=== PATIENT | female | born 1990 | race Caucasian/White ===

== ENCOUNTER 2021-12-20 21:45 | Inpatient (IN) | payer MEDICAID ==
[2021-12-20] MEDS ORDERED: Sodium Chloride 0.9% 10 ML Syringe FLUSH PRN (21:48)
[2021-12-20] MEDS ORDERED: Naloxone 0.4 MG/ML SDV IVPUSH STA (21:49)
[2021-12-20 22:12] LABS: ESTIMATED GFR 101 mL/min (>60)
[2021-12-21] MEDS ORDERED: Ondansetron 4 MG/2 ML SDV IV PRN (01:57)
[2021-12-21] MEDS ORDERED: Sodium Chloride 0.9% 10 ML Syringe FLUSH PRN (01:57)
[2021-12-21] MEDS: Sodium Chloride 0.9% 1,000 ML IV SCH ×2 (02:27→10:35)
== END 2021-12-21 17:58 | disposition home or self-care (01) | DRG 918 ==
LOC: JP.ED 21:45 → JP.ICU 12-21 00:25
PROVIDERS: ADMIT Hospitalist; ATTEND Hospitalist
DX: T43.011A Poisoning by tricyclic antidepressants, accidental (unintentional), initial encounter (principal); T40.601A Poisoning by unspecified narcotics, accidental (unintentional), initial encounter; T40.711A Poisoning by cannabis, accidental (unintentional), initial encounter; F12.90 Cannabis use, unspecified, uncomplicated; R40.2421 Glasgow coma scale score 9-12, in the field [EMT or ambulance]; M06.9 Rheumatoid arthritis, unspecified; F32.A Depression, unspecified; K59.09 Other constipation; Z20.822 Contact with and (suspected) exposure to COVID-19; Z91.018 Allergy to other foods; Z86.19 Personal history of other infectious and parasitic diseases
CPT/HCPCS: 36415; 36600; 51702; 70450; 80048; 80053; 80143; 80179; 80305-QW; 80307; 81001; 82803; 85025; 93005; 96374; 99223; 99238; 99291-25; J2310; J3490; J7030; U0002

== ENCOUNTER 2022-10-14 12:05 | Emergency (ER) | payer MEDICAID ==
[2022-10-14] MEDS ORDERED: Sodium Chloride 0.9% 10 ML Syringe FLUSH PRN (12:40)
[2022-10-14] MEDS ORDERED: Ketorolac 30 MG/ML SDV IVPUSH ONE (12:41)
[2022-10-14] MEDS ORDERED: Sodium Chloride 0.9% 1,000 ML IV SCH (12:45)
[2022-10-14] MEDS ORDERED: Sodium Chloride 0.9% 10 ML SDV FLUSH ONE (12:54)
[2022-10-14] MEDS ORDERED: Iopamidol 612 MG/ML 100 ML Bottle IV PRN (12:54)
[2022-10-14] MEDS ORDERED: Sodium Chloride 0.9% 100 ML IV SCH (13:00)
== END 2022-10-14 14:30 | disposition home or self-care (01) ==
LOC: JP.ED 12:05
DX: S09.90XA Unspecified injury of head, initial encounter (principal); Z91.018 Allergy to other foods; Y04.2XXA Assault by strike against or bumped into by another person, initial encounter
CPT/HCPCS: 70450; 70491; 96361; 96374; 99284; J1885; J3490; J7030; Q9967

== ENCOUNTER 2023-04-25 12:08 | Emergency (ER) | payer BC, MEDICAID ==
[2023-04-25 13:44] LABS: BASOPHILS PERCENT AUTO 0.5 % (0.1-1.3); EOSINOPHILS ABSOLUTE AUTO 0.03 K/uL (0.00-0.40); EOSINOPHILS PERCENT AUTO 0.7 % (0.0-5.4); HEMATOCRIT 39.2 % (34.3-46.0); HEMOGLOBIN 13.1 g/dL (11.2-15.5); IMMATURE GRAN PERCENT AUTO 0.2 % (0.0-0.7); LYMPHOCYTES ABSOLUTE AUTO 1.35 K/uL (0.8-3.3); LYMPHOCYTES PERCENT AUTO 32.5 % (11.4-47.7); MEAN CORPUSCULAR HEMOGLOBIN 30.1 pg (31.6-35.5); MEAN CORPUSCULAR HGB CONC 33.4 g/dL (31.6-35.5); MEAN CORPUSCULAR VOLUME 90.1 fL (81.4-99.0); MONOCYTES ABSOLUTE AUTO 0.48 K/uL (0.20-0.90); MONOCYTES PERCENT AUTO 11.5 % (3.3-12.6); NEUTROPHILS ABSOLUTE AUTO 2.27 K/uL (1.0-7.6); NEUTROPHILS PERCENT AUTO 54.6 % (40.0-78.1); PLATELET COUNT,PLT 229 K/uL (130-375); RED BLOOD CELL COUNT 4.35 M/uL (3.77-5.24); WHITE BLOOD CELL COUNT,WBC 4.2 K/uL (3.2-11.0)
[2023-04-25 13:47] LABS: BASOPHILS ABSOLUTE AUTO 0.02 K/uL (0.00-0.10); IMMATURE GRAN ABSOLUTE AUTO 0.01 K/uL (0.00-0.23)
[2023-04-25] MEDS ORDERED: Sodium Chloride 0.9% 1,000 ML IV ONE (13:52)
[2023-04-25] MEDS ORDERED: Prochlorperazine 10 MG/2 ML SDV IVPUSH ONE (13:53)
[2023-04-25] MEDS ORDERED: Ketorolac 15 MG/ML SDV IVPUSH ONE (13:53)
[2023-04-25] MEDS ORDERED: Sodium Chloride 0.9% 10 ML Syringe FLUSH ONE (13:56)
[2023-04-25] MEDS ORDERED: Iopamidol 612 MG/ML 100 ML Bottle IV ONE (13:56)
[2023-04-25] MEDS ORDERED: Sodium Chloride 0.9% 50 ML IV ONE (13:56)
[2023-04-25 14:08] LABS: ANION GAP 9.9 mmol/L (5.0-14.0); BLOOD UREA NITROGEN,BUN 7 mg/dL (7-18); CALCIUM 8.5 mg/dL (8.5-10.1); CARBON DIOXIDE,CO2 27 mmol/L (21-32); CHLORIDE,CL 103 mmol/L (100-108); CREATININE 0.7 mg/dL (0.6-1.0); EST CRCL DRUG DOSING (CG) 98.22 mL/min; ESTIMATED GFR 117 mL/min (>60); GLUCOSE RANDOM 99 mg/dL (74-106); POTASSIUM,K 3.8 mmol/L (3.6-5.2); SODIUM,NA 140 mmol/L (140-148)
[2023-04-25 14:09] LABS: C-REACTIVE PROTEIN < 0.05 mg/dL (0.0-0.3)
== END 2023-04-25 17:01 | disposition home or self-care (01) ==
LOC: JP.ED 12:08
DX: R07.89 Other chest pain (principal); G43.909 Migraine, unspecified, not intractable, without status migrainosus; Z91.018 Allergy to other foods
CPT/HCPCS: 36415; 71045; 71045-26; 74177; 80048; 81025; 83605; 84484; 85025; 85379; 86140; 93005; 93010; 96361; 96374; 96375; 99284; 99285-25; J0780; J1885; J3490; J7030; Q9967